=== PATIENT | male | born 1975 | race African-American/Black ===

== ENCOUNTER 2018-05-25 20:52 | Emergency (ER) | payer SELFPAY ==
[~2018-05-25] VITALS: Ht 177.8 cm; Wt 84.1 kg
[2018-05-25] MEDS ORDERED: KETOROLAC TROMETHAMINE 60 MG/2 ML VIAL IM ONE (22:45)
[2018-05-25] MEDS ORDERED: ACETAMINOPHEN/CODEINE 300-30 MG TABLET PO ONE (22:45)
[2018-05-26 02:20] VITALS: BP 124/77
== END 2018-05-26 02:24 | disposition home or self-care (01) ==
LOC: EMS 20:52
DX: S13.4XXA Sprain of ligaments of cervical spine, initial encounter (principal); S33.5XXA Sprain of ligaments of lumbar spine, initial encounter; S63.502A Unspecified sprain of left wrist, initial encounter; S00.03XA Contusion of scalp, initial encounter; V43.62XA Car passenger injured in collision with other type car in traffic accident, initial encounter; Y93.89 Activity, other specified; Y92.488 Other paved roadways as the place of occurrence of the external cause; Y99.8 Other external cause status
CPT/HCPCS: 29125; 70450; 72070; 72100; 72125; 73110; 96372; 99284; J1885